=== PATIENT | female | born 1975 | race Two or more races ===

== ENCOUNTER 2024-04-24 16:50 | Emergency (ER) | payer OTHER ==
[~2024-04-24] VITALS: Ht 160 cm; Wt 133.4 kg
[2024-04-24] MEDS ORDERED: FLOXETINE (18:14)
[2024-04-24] MEDS ORDERED: SLOW FE137 MG PO (18:16)
[2024-04-24] MEDS ORDERED: IRBESARTAN-HCT1 EACH PO (18:16)
[2024-04-24] MEDS ORDERED: KETOROLAC TROMETHAMINE 30 MG VIAL IM STA (18:34)
[2024-04-24] MEDS ORDERED: KETOROLAC TROMETHAMINE 30 MG VIAL ONE (18:38)
== END 2024-04-24 21:18 | disposition home or self-care (01) ==
LOC: ER 16:51
DX: S93.401A Sprain of unspecified ligament of right ankle, initial encounter (principal); I10 Essential (primary) hypertension; D64.89 Other specified anemias